=== PATIENT | female | born 1980 | race Caucasian/White ===

== ENCOUNTER 2021-08-22 18:11 | Emergency (ER) | payer SELFPAY ==
[~2021-08-22] VITALS: Ht 170.2 cm; Wt 59.0 kg
[~2021-08-22 18:11] MED LIST: NAPR-682 PO; TRAM1TAB56 PO
[2021-08-22 19:31] VITALS: BP 139/81
--- NOTE | 2021-08-22 20:23 | PHYS DOC ---
Past Medical History Past Medical History: No Pertinent History Additional Past Medical Histor: denies (YOSSI DEE Bernardo EXTRUSION MACHINE OPERATOR) Past Surgical History: No Surgical History Additional Past Surgical Histo: breast enlargement, thyroglocduct cyst removed (YOSSI DEE Bernardo EXTRUSION MACHINE OPERATOR) Smoking Status: Current Every Day Smoker Alcohol Use: Occasionally Drug Use: Marijuana (YOSSI DEE Bernardo EXTRUSION MACHINE OPERATOR) General Adult EDM: Chief Complaint: OTHER COMPLAINTS HPI: HPI: Patient is a 40 year old female who presents to the ED today stating she has worms coming out of her skin for 6 months. She states they are tucked underneath her eye brows, under her skin, all over her body. She is picking at her skin randomly including her eyes, her hair, her hands stating she is removing this parasites and worms. She states she has a bald spot on the head that is from parasites and worms coming out of the areas. She states she is coughing up this parasites and worms. Patient starts coughing randomly with clear sputum and tells me there are parasites on the Kleenex that collected the sputum. She is talking nonstop and has many pieces of used Kleenex on her thigh stating she has been removing parasites and worms from her body and would like us to see. Patient states she has never been evaluated for this but as we are speaking she states she has been seen at a different facility 6 months ago for the same complaint and she was told she does not have any worms or parasites now she is dying from this. Patient denies any suicidal or homicidal ideations. I spoke to patient. I evaluated her I did not find any parasites or worms on her exterior body. Informed she needs to consider getting a psychiatric/mental health help. She is speaking very fast, reports using marijuana denies using any other drugs. She states she does not need mental health. She states she already tried being seen somewhere else 6 months ago but she was told she does not have any parasites or worms. She states nobody can see this parasites, they are microscopic we need a microscope in the ED to see them. She goes further to state she does not believe this is a mental illness. She states she does not want any mental health consult. She stood up and left (MARYCHUYMeredithYOSSI Bernardo EXTRUSION MACHINE OPERATOR) Review of Systems: Review of Systems: Constitutional: Denies fever or chills. [] Eyes: Denies change in visual acuity. [] HENT: Denies nasal congestion or sore throat. [] Respiratory: Reports coughing up parasites and worms Cardiovascular: Denies chest pain or edema. [] GI: Denies abdominal pain, nausea, vomiting, bloody stools or diarrhea. [] : Denies dysuria. [] Musculoskeletal: Denies back pain or joint pain. [] Integument: Denies rash. [] Neurologic: Denies headache, focal weakness or sensory changes. [] Psychiatric: Reports parasites and worms on her (YOSSI DEE M EXTRUSION MACHINE OPERATOR) Heart Score: C/O Chest Pain: N/A Risk Factors: Risk Factors: DM, Current or recent (<one month) smoker, HTN, HLP, family history of CAD, obesity. Risk Scores: Score 0 - 3: 2.5% MACE over next 6 weeks - Discharge Home Score 4 - 6: 20.3% MACE over next 6 weeks - Admit for Clinical Observation Score 7 - 10: 72.7% MACE over next 6 weeks - Early Invasive Strategies (YOSSI DEE M EXTRUSION MACHINE OPERATOR) Allergies: Allergies: Allergies Coded Allergies Type Severity Reaction Last Updated Verified No Known Drug Allergies 04/20/14 No (YOSSI DEE M EXTRUSION MACHINE OPERATOR) Physical Exam: PE: Constitutional: Well developed, well nourished, no acute distress, non-toxic appearance. [] HENT: Normocephalic, atraumatic, bilateral external ears normal, oropharynx moist, no oral exudates, nose normal. [] Eyes: PERRLA, EOMI, conjunctiva normal, no discharge. [] Neck: Normal range of motion, no tenderness, supple, no stridor. [] Cardiovascular:Heart rate regular rhythm, no murmur [] Lungs & Thorax: Bilateral breath sounds clear to auscultation [] Abdomen: Bowel sounds normal, soft, no tenderness, no masses, no pulsatile mas ses. [] Skin: Area of alopecia noted on the top of her head Back: No tenderness, no CVA tenderness. [] Extremities: No tenderness, no cyanosis, no clubbing, ROM intact, no edema. [] Neurologic: Alert and oriented X 3, normal motor function, normal sensory function, no focal deficits noted. [] Psychologic: Flat affect, talking very fast, picking her skin (YOSSI DEE EXTRUSION MACHINE OPERATOR) Current Patient Data: Vital Signs: Vital Signs Date Time Temp Pulse Resp B/P (MAP) Pulse Ox O2 Delivery O2 Flow Rate FiO2 08/22/21 19:31 99.5 93 20 139/81 (100) 99 Room Air 99.5 (YOSSI DEE EXTRUSION MACHINE OPERATOR) EKG: EKG: [] (YOSSI DEE APRN) Radiology/Procedures: Radiology/Procedures: [] (YOSSI DEE APRN) Course & Med Decision Making: Course & Med Decision Making Pertinent Labs and Imaging studies reviewed. (See chart for details) See HPI. Patient believes she has parasites and bumps coming out of her body. There was no parasites noted on worms. Offered patient mental health help, she refused and walked away (YOSSI DEE EXTRUSION MACHINE OPERATOR) Dragon Disclaimer: Dragon Disclaimer: This electronic medical record was generated, in whole or in part, using a voice recognition dictation system. (YOSSI DEE EXTRUSION MACHINE OPERATOR) Departure Departure Impression: Primary Impression: Psychomotor assessment encounter Additional Impression: Visual hallucination Disposition: 01 HOME / SELF CARE / HOMELESS Condition: STABLE Referrals: MANUEL PERLA MD (PCP) Attending Signature Attending Signature I have reviewed the PA/DENTAL MOLD MAKER's note and plan of care. I was available for consultation as needed during the patient's visit in the emergency department. I agree with the clinical impression, plan, and disposition. (SANTOS BERNARD DO) YOSSI DEE GAGE Aug 22, 2021 20:23 SANTOS BERNARD DO Aug 22, 2021 23:23
== END 2021-08-22 20:00 | disposition home or self-care (01) ==
LOC: ER 18:11
DX: R44.1 Visual hallucinations (principal); F17.200 Nicotine dependence, unspecified, uncomplicated
CPT/HCPCS: 99281